=== PATIENT | female | born 1995 | race Caucasian/White ===

== ENCOUNTER → 2025-02-12 12:58 | Outpatient (REF) | payer OTHER, SELFPAY | LOC: HWRAD 12:58 | PROVIDERS: ATTENDING PHYSICIAN Obstetrics & Gynecology; FAMILY PHYSICIAN Family Medicine | DX: E28.1 Androgen excess (principal); N91.5 Oligomenorrhea, unspecified; E66.9 Obesity, unspecified | CPT/HCPCS: 76856 ==